=== PATIENT | female | born 1985 | race Caucasian/White ===

== ENCOUNTER 2016-09-10 10:07 | Emergency (ER) | payer BC ==
[2016-09-10 11:39] LABS: HEMOGLOBIN 13.8 gm/dl (12.3-15.3); RED BLOOD COUNT 4.83 M/UL (4.00-5.10); WHITE BLOOD COUNT 5.8 K/UL (4.5-11.0)
[2016-09-10 12:47] LABS: BUN/CREATININE RATIO 17 (0-10)
== END 2016-09-10 14:30 | disposition home or self-care (01) ==
LOC: ER1 10:07
PROVIDERS: Student in an Organized Health Care Education/Training Program
DX: I10 Essential (primary) hypertension (principal); R20.2 Paresthesia of skin
CPT/HCPCS: 36415; 70450; 71010; 80053; 82550; 82553; 83874; 84484; 84703; 85025; 93005; 99284